=== PATIENT | male | born 1995 | race Caucasian/White ===

== ENCOUNTER 2018-02-22 12:58 | Inpatient (IN) | payer MEDICAID ==
[2018-02-22 13:53] LABS: BASO # 0.1 K/uL (0.0-0.2); BASO % 1.3 % (0.0-2.0); EOS # 0.4 K/uL (0.0-0.7); EOS % 5.3 % (0.0-4.0); HEMOGLOBIN 15.1 g/dL (12.0-18.0); LYMPH # 1.9 K/uL (1.0-4.3); LYMPH % 22.7 % (20.0-40.0); MEAN CELL VOLUME 87.8 fL (80.0-94.0); MEAN CORPUSCULAR HEMOGLOBIN 30.5 pg (27.0-31.0); MEAN CORPUSCULAR HGB CONC 34.7 g/dL (33.0-37.0); MEAN PLATELET VOLUME 8.6 fL (7.2-11.7); MONO # 0.5 K/uL (0.0-0.8); MONO % 6.5 % (0.0-10.0); NEUT # 5.3 K/uL (1.8-7.0); NEUT % 64.2 % (50.0-75.0); RBC 4.96 Mil/uL (4.40-5.90); RED CELL DISTRIBUTION WIDTH 12.7 % (11.5-14.5); WHITE BLOOD COUNT 8.2 K/uL (4.8-10.8)
[2018-02-22 13:58] LABS: URINE BILIRUBIN NEGATIVE (NEGATIVE); URINE BLOOD NEGATIVE (NEGATIVE); URINE CLARITY Clear (Clear); URINE COLOR Yellow (YELLOW); URINE GLUCOSE (UA) NORMAL (Normal); URINE LEUKOCYTE ESTERASE NEG Leu/uL (Negative); URINE PROTEIN NEGATIVE (NEGATIVE); URINE UROBILINOGEN NORMAL mg/dL (0.2-1.0)
[2018-02-22 14:08] LABS: ALB/GLOB RATIO 1.6 (1.0-2.1); ALBUMIN 4.5 g/dL (3.5-5.0); ALT/SGPT 32 U/L (21-72); AST/SGOT 27 U/L (17-59); BLOOD UREA NITROGEN 8 mg/dL (9-20); CALCIUM 9.1 mg/dl (8.6-10.4); GFR NON-AFRICAN AMERICAN > 60
[2018-02-22 14:20] LABS: BARBITURATES, UR NEGATIVE (NEGATIVE); BENZODIAZEPINES, UR NEGATIVE (NEGATIVE); PHENCYCLIDINE, UR NEGATIVE (NEGATIVE)
--- NOTE | 2018-02-22 14:30 | C.PDOC ---
History Of Present Illness 23-year-old male with a history of heroin use presents to the ED for detox. Patient states he last used heroin via intranasal yesterday. No other complaints during this time. Denies fever, nausea, vomiting, and any other associated symptoms. Time Seen by Provider: 02/22/18 13:18 Chief Complaint (Nursing): Substance Abuse History Per: Patient History/Exam Limitations: no limitations Past Medical History Reviewed: Historical Data, Nursing Documentation, Vital Signs Vital Signs: Last Vital Signs Temp 98.2 F 02/22/18 13:11 Pulse 88 02/22/18 13:11 Resp 18 02/22/18 13:11 BP 126/79 02/22/18 13:11 Pulse Ox 100 02/22/18 13:11 Family History: States: Unknown Family Hx - Social History Hx Alcohol Use: No Hx Substance Use: Yes (heroin) - Immunization History Hx Tetanus Toxoid Vaccination: No Hx Influenza Vaccination: No Hx Pneumococcal Vaccination: No Review Of Systems Constitutional: Negative for: Fever Gastrointestinal: Negative for: Nausea, Vomiting Psych: Positive for: Other (detox: heroin.) Physical Exam - Physical Exam Appears: Well, No Acute Distress Skin: Normal Color, Warm, Dry Head: Atraumatic, Normacephalic Eye(s): bilateral: Normal Inspection Oral Mucosa: Moist Neck: Normal ROM, Supple Chest: Symmetrical, No Deformity Cardiovascular: Rhythm Regular, No Murmur Respiratory: Normal Breath Sounds, No Rales, No Rhonchi, No Wheezing Gastrointestinal/Abdominal: Normal Exam, Soft, No Tenderness Neurological/Psych: Oriented x3, Normal Speech ED Course And Treatment - Laboratory Results Result Diagrams: 02/22/18 13:44 02/22/18 13:44 O2 Sat by Pulse Oximetry: 100 (RA) Pulse Ox Interpretation: Normal Progress Note: Blood work, UA, UDS ordered and reviewed. 3:00pm - Patient medically cleared. Disposition - Disposition Forms: [employer] (Lithuanian) - Scribe Statement The provider has reviewed the documentation as recorded by the Scribe (Maria Fernanda Peterson) Provider Attestation: All medical record entries made by the Scribe were at my direction and personally dictated by me. I have reviewed the chart and agree that the record accurately reflects my personal performance of the history, physical exam, medical decision making, and the department course for this patient. I have also personally directed, reviewed, and agree with the discharge instructions and disposition.
[2018-02-22 14:49] LABS: OPIATES, UR POSITIVE (NEGATIVE)
--- NOTE | 2018-02-22 15:45 | PCM.PSYCH ---
Initial Psychiatric Evaluation - Initial Psychiatric Evaluation Type of Admission: Voluntary Legal Status: Capacity Chief Complaint (in patient's own words): "I need detox" History of Present Illness and Precipitating Events: The pt is seen, chart reviewed and case discussed He is a 23 y/o male, single, no child, employed as a hair-dresser, lives with his family He is here for heroin detox. He is using up to 10 bags, intranasally for about a year. He did one more detox and IOP before. Near OD, no MAT Denies other drugs Pas psych hx: Depression, still depressed but not suicidal Medical hx: Denies Family psych hx: Denies Current Medications: Active Medications Generic Name Dose Route Start Last Admin Trade Name Freq PRN Reason Stop Dose Admin Al Hydrox/Mg Hydrox/Simethicone 30 ml 02/22/18 15:38 Maalox 30 Ml PO TID PRN Indigestion / Heartburn Clonidine HCl 0.1 mg 02/22/18 15:38 Catapres PO Q8 PRN COWS Score More or Equal to 5 Loperamide HCl 2 mg 02/22/18 15:38 Imodium PO Q8 PRN Diarrhea Ondansetron HCl 4 mg 02/22/18 15:38 Zofran Tab PO Q8 PRN Nausea/Vomiting Past Psychiatric History - Past Psychiatric History Previous Treatment History: None Pertinent Medical Hx (Current Medical&Sleep Prob, Allergies): Allergies Allergy/AdvReac Type Severity Reaction Status Date / Time No Known Allergies Allergy Unverified 02/22/18 13:13 No Known Home Med 02/22/18 Review of Systems - Neurological Neurological: UNREMARKABLE - Psychiatric Psychiatric: Abnormal Sleep Pattern, Anhedonia, Anxiety, Depression, Difficulty Concentrating. absent: Hallucinations, Homicidal Ideation, Paranoia, Suicidal Ideation Mental Status Examination - Personal Presentation Personal Presentation: Looks stated age - Affect Affect: Constricted - Motor Activity Motor Activity: Calm - Reliability in Providing Information Reliability in Providing Information: Good - Speech Speech: Organized - Mood Mood: Depressed, Anxious - Formal Thought Process Formal Thought Process: No Impairment - Cognitive Functions Orientation: Person, Place, Situation, Time Sensorium: Alert Attention/Concentration: Attentive Estimate of Intelligence: Average Judgement: Intact, as evidence by: Insight regarding need for hospitalization Memory: Recent intact, as evidence by: Ability to recall events of the day, Remote intact, as evidenced by: Abilit to recall sig. life events - Risk Risk: Withdrawal, Diminished functioning - Strength & Assets Inventory Strength & Assets Inventory: Family support, Employment history, Life experience, Cooperative - Limitations Limitations: Other DSM 5 DX - DSM 5 DSM 5 Diagnosis: Opioid withdrawal Opioid use d/o - severe Tobacco use d/o Depressive d/o - unspecified - Recommended/Plan of Treatment Treatment Recommendations and Plan of Treatment: Taper with subutex remeron for depressive sxs and insomnia Gabapentin for augmentation if needed As needed medications All risks, benefits and alternatives of the meds discussed, and the pt agreed and understood. Attend groups and activities Supportive therapy and psychoeducation CA for abstinence CBT for relapse prevention Encourage MAT Refer to rehab after detox - he agrees Teach healthy lifestyle methods, i.e. diet, exercise, meditation Smoking cessation with CA Nicotine patch if needed 34 min Projected ELOS: 4 days Prognosis: good with detox, rehab and MAT - Smoking Cessation Smoking Cessation Initiated: Yes
[2018-02-22] MEDS ORDERED: Aluminum Hydroxide/Magnesium Hydroxide Susp (30 mL) PO PRN (16:08)
--- NOTE | 2018-02-22 19:22 | PCM.BM ---
<Yuko Garcia - Last Filed: 02/22/18 19:21> Treatment Plan Problems - Problems identified on initial assessmt Potential for opiate withdrawal Date Initiated: 02/22/18 Time Initiated: 19:22 Assessment reference: NA Status: Active Treatment assets and liabiliti Patient Assests: cooperative, ADL independent, physically healthy, negotiates basic needs, cognitively intact Patient Liabilities: substance abuse (heroin) - Milieu Protocol Maintain good personal hygiene: daily Encourage regular showers, daily Remind patient to perform daily oral care, daily Assist patient to perform ADL's Maintain personal safety: every shift Educate patient to report safety concerns to staff, every shift Monitor environment for contraband/sharps Medication safety: Monitor for expected outcome, potential side effects: every shift, Assess barriers to learning: every shift, Assess readiness for medication education: every shift Milieu Narrative: Taper with subutex remeron for depressive sxs and insomnia Gabapentin for augmentation if needed As needed medications All risks, benefits and alternatives of the meds discussed, and the pt agreed and understood. Attend groups and activities Supportive therapy and psychoeducation CO for abstinence CBT for relapse prevention Encourage MAT Refer to rehab after detox - he agrees Teach healthy lifestyle methods, i.e. diet, exercise, meditation Smoking cessation with CO Nicotine patch if needed 34 min Discharge/Continuing Care - Treatment Team Participation Patient/Family/SO Statement: Taper with subutex remeron for depressive sxs and insomnia Gabapentin for augmentation if needed As needed medications All risks, benefits and alternatives of the meds discussed, and the pt agreed and understood. Attend groups and activities Supportive therapy and psychoeducation CO for abstinence CBT for relapse prevention Encourage MAT Refer to rehab after detox - he agrees Teach healthy lifestyle methods, i.e. diet, exercise, meditation Smoking cessation with CO Nicotine patch if needed 34 min <Nathen Bishop - Last Filed: 02/22/18 22:50> - Diagnosis (1) Opioid use disorder, severe, dependence Status: Acute Interventions: 02/22/18 22:49 * Assess 7x/week regarding severity of withdrawal * Educate regarding risks, benefits, side effects and alternatives of medications * Use Motivational Interviewing for abstinence * Use CBT for relapse prevention * Medication management for withdrawal symptoms * Encourage medication assisted treatment *
[2018-02-23] MEDS: Multiple Vitamins Tab PO SCH (09:58)
[2018-02-24 05:46] VITALS: O2SAT 99
[2018-02-24 09:23] VITALS: BP 119/73; PULSE 66; RESP 20; TEMP 98
[2018-02-24] MEDS: Multiple Vitamins Tab PO SCH (09:26)
--- NOTE | 2018-02-24 20:46 | PCM.PYCHPN ---
Psychiatric Progress Note - Psychiatric Progress Note Patient seen today, length of contact: 15 MIN Patient Chief Complaint: I WABT TO LEAVE TODAY BUT I TALKED WITH DR. ASTUDILLO AND WE HAVE A DEAL SO I WILL STAY UNTIL TOMORROW PT SEEN AND EXAMINED DISCUSSED WITH STAFF Problems Identified/Issues Discussed: SEE ABOVE Medical Problems: NOTHING ACUTE Diagnostic Results: REVIEWED DSM 5 Symptoms Update: ANXIOUS Medication Change: Yes (SUBUTEX) Medical Record Reviewed: Yes Mental Status Examination - Cognitive Function Orientation: Person, Place, Situation, Time Memory: Intact Attention: WNL Concentration: WNL Association: WNL Fund of Knowledge: WNL - Mood Mood: Anxious - Affect Affect: Constricted - Formal Thought Process Formal Thought Process: No Impairment - Suicidal Ideation Suicidal Ideation: No - Homicidal Ideation Homicidal Ideation: No Goal/Treatment Plan - Goal/Treatment Plan Need for Continued Stay: Remain at risks for inpatient hospitalization Progress Toward Problem(s) and Goals/Treatment Plan: OPIOID WITHDRAWAL SUBUTEX Estimated Date of D/C: 02/25/18 - Smoking Cessation Smoking Cessation Initiated: No
== END 2018-02-24 12:30 | disposition home or self-care (01) | DRG 754 ==
LOC: C.ER 12:58 → C.7D 15:17
PROVIDERS: ADMIT Psychiatry & Neurology Psychiatry; ATTEND Psychiatry & Neurology Psychiatry
PROC: GZHZZZZ Group Psychotherapy (ICD-10-PCS; principal; 2018-02-22)
PROC: GZ56ZZZ Individual Psychotherapy, Supportive (ICD-10-PCS; 2018-02-22)
DX: F32.9 Major depressive disorder, single episode, unspecified (principal); F11.23 Opioid dependence with withdrawal; Z72.0 Tobacco use